=== PATIENT | male | born 1980 | race Caucasian/White ===

== ENCOUNTER 2017-06-30 22:25 | Emergency (ER) | payer BC ==
[2017-06-30 22:25] VITALS: BMI 32.5
[2017-06-30 22:44] VITALS: TEMP 97.9
[2017-06-30] MEDS ORDERED: Sodium Chloride 0.9% 1,000 ML IV ONE (23:03)
--- NOTE | 2017-06-30 23:03 | C.PDOC ---
History Of Present Illness <Nate Jenkins - Last Filed: 07/01/17 00:58> <Liliana Mcbride - Last Filed: 07/01/17 05:33> 37 yo male, presnets with abd pain. as per pt started today. pain worse lower abd, llq. pt reports fever to 101. no urinary changes diarrhea or other complaints (Gregory,Nate) <Nate Jenkins - Last Filed: 07/01/17 00:58> <Liliana Mcbride - Last Filed: 07/01/17 05:33> Time Seen by Provider: 06/30/17 22:59 Chief Complaint (Nursing): Abdominal Pain Past Medical History Reviewed: Historical Data, Nursing Documentation, Vital Signs - Medical History PMH: Asthma Family History: States: Unknown Family Hx - Social History Hx Alcohol Use: Yes Hx Substance Use: No - Immunization History Hx Tetanus Toxoid Vaccination: No Hx Influenza Vaccination: No Hx Pneumococcal Vaccination: No <Nate Jenkins - Last Filed: 07/01/17 00:58> Vital Signs: Last Vital Signs Temp 97.9 F 07/01/17 01:41 Pulse 64 07/01/17 01:41 Resp 20 07/01/17 01:41 BP 127/84 07/01/17 01:41 Pulse Ox 97 07/01/17 01:41 Review Of Systems Constitutional: Positive for: Fever Gastrointestinal: Positive for: Abdominal Pain <Nate Jenkins - Last Filed: 07/01/17 00:58> Physical Exam - Physical Exam Appears: Well, No Acute Distress Skin: Normal Color, Warm, Dry Eye(s): bilateral: Normal Inspection, PERRL, EOMI Nose: Normal Throat: Normal Neck: Normal Cardiovascular: Rhythm Regular Respiratory: Normal Breath Sounds Gastrointestinal/Abdominal: Normal Exam, Soft, Tenderness (mild llq), No Guarding, No Rebound Back: Normal Inspection Extremity: Normal ROM <Nate Jenkins - Last Filed: 07/01/17 00:58> ED Course And Treatment - Laboratory Results Result Diagrams: 06/30/17 23:20 06/30/17 23:20 O2 Sat by Pulse Oximetry: 96 <Nate Jenkins - Last Filed: 07/01/17 00:58> - Laboratory Results Result Diagrams: 06/30/17 23:20 06/30/17 23:20 <Liliana Mcbride - Last Filed: 07/01/17 05:33> Medical Decision Making <Nate Jenkins - Last Filed: 07/01/17 00:58> <Liliana Mcbride - Last Filed: 07/01/17 05:33> Medical Decision Making: ro colitis uti diverticulitis- labs imaging pending pt reassesed pain improve.d ct pending 100case endorsed to third shift lieutenant pending ct, reassess, final dispo (Nate Jenkins ) Disposition - Disposition Disposition Time: 00:59 <Nate Jenkins - Last Filed: 07/01/17 00:58> <Liliana Mcbride - Last Filed: 07/01/17 05:33> - Disposition Referrals: Non [facility] Provider, [Non-Staff] - Disposition: HOME/ ROUTINE Condition: STABLE Instructions: Viral Gastroenteritis Forms: [facility] (Serbian) - Clinical Impression Clinical Impression: Abdominal pain
[2017-06-30 23:29] LABS: SQUAMOUS EPITHIAL < 1 /hpf (0-5); URINE BILIRUBIN NEGATIVE (NEGATIVE); URINE BLOOD NEGATIVE (NEGATIVE); URINE CLARITY Clear (Clear); URINE COLOR Yellow (YELLOW); URINE GLUCOSE (UA) NORMAL (Normal); URINE LEUKOCYTE ESTERASE NEG Leu/uL (Negative); URINE PROTEIN 1+ mg/dL (NEGATIVE)
[2017-06-30 23:31] LABS: INR 1.1; PROTHROMBIN TIME 12.2 SECONDS (9.7-12.2)
[2017-06-30 23:35] LABS: ALB/GLOB RATIO 1.1 (1.0-2.1); ALBUMIN 4.2 g/dL (3.5-5.0); ALT/SGPT 68 U/L (21-72); AST/SGOT 36 U/L (17-59); BLOOD UREA NITROGEN 17 mg/dL (9-20); CALCIUM 8.3 mg/dl (8.6-10.4); GFR AFRICAN-AMERICAN > 60; GFR NON-AFRICAN AMERICAN > 60; LIPASE 46 U/L (23-300)
[2017-06-30] MEDS ORDERED: Sodium Chloride 0.9% 1,000 ML ONE (23:35)
[2017-06-30] MEDS ORDERED: Iohexol 350mg/ml 100 ML ONE (23:47)
[2017-06-30 23:58] LABS: BASO # 0.1 K/uL (0.0-0.2); BASO % 0.7 % (0.0-2.0); EOS # 0.9 K/uL (0.0-0.7); EOS % 11.3 % (0.0-4.0); HEMOGLOBIN 15.7 g/dL (12.0-18.0); LYMPH # 1.9 K/uL (1.0-4.3); LYMPH % 23.4 % (20.0-40.0); MEAN CORPUSCULAR HEMOGLOBIN 32.6 pg (27.0-31.0); MEAN CORPUSCULAR HGB CONC 35.4 g/dL (33.0-37.0); MONO # 0.8 K/uL (0.0-0.8); MONO % 10.6 % (0.0-10.0); NEUT # 4.3 K/uL (1.8-7.0); NRBC % 0.1 % (0.0-2.0); RBC 4.82 Mil/uL (4.40-5.90); WHITE BLOOD COUNT 7.9 K/uL (4.8-10.8)
--- NOTE | 2017-07-01 01:11 | CT ---
EXAM: CT Abdomen and Pelvis With Intravenous Contrast CLINICAL HISTORY: 37 years old, male; Pain; Abdominal pain; Patient HX: 02-06-17 images sent; Additional info: Lower abd pain TECHNIQUE: Axial computed tomography images of the abdomen and pelvis with intravenous contrast. All CT scans at this facility use one or more dose reduction techniques, viz.: automated exposure control; ma/kV adjustment per patient size (including targeted exams where dose is matched to indication; i.e. head); or iterative reconstruction technique. Coronal and sagittal reformatted images were created and reviewed. CONTRAST: 100 mL of [id number] administered intravenously. COMPARISON: CT - ABD PELVIS W/O PO OR IV CONT 2017-02-06 20:01 FINDINGS: Lower thorax: No acute findings. ABDOMEN: Liver: Fatty infiltration. Gallbladder and bile ducts: No calcified stones. No ductal dilation. Pancreas: No ductal dilation. No mass. Spleen: No splenomegaly. Adrenals: No mass. Kidneys and ureters: Few punctate renal calculi. No hydronephrosis. Stomach and bowel: No definite mural thickening. No obstruction. Appendix: No definite findings to suggest acute appendicitis. PELVIS: Bladder: Unremarkable. Reproductive: Unremarkable as visualized. ABDOMEN and PELVIS: Intraperitoneal space: No significant fluid collection. No free air. Bones/joints: Chronic left L5 pars defect. No acute fracture. Probable bone islands. Soft tissues: Unremarkable. Vasculature: Retroaortic LEFT renal vein. No aneurysm. Lymph nodes: No pathologically enlarged lymph nodes. IMPRESSION: 1. Nonobstructing renal calculi. 2. Incidental/non-acute findings are described above.
[2017-07-01 01:42] VITALS: BP 127/84; PULSE 64; RESP 20; O2SAT 97
== END 2017-07-01 01:42 | disposition home or self-care (01) ==
LOC: C.ER 22:25 → SUPCPDRO 22:25 → C.ER 07-01 01:42
DX: R10.32 Left lower quadrant pain (principal)
CPT/HCPCS: 74177; 80053; 81001; 83690; 85025; 85610; 85730; 96360; 99284; J7040; Q9967

== ENCOUNTER 2018-06-28 17:00 | Emergency (ER) | payer BC ==
[2018-06-28 17:06] VITALS: BMI 35.2
[2018-06-28 17:08] VITALS: BP 129/90; PULSE 65; RESP 18; TEMP 97.9; O2SAT 98
[2018-06-28] MEDS ORDERED: Tdap Vaccine 0.5 ml Vial (10-64 yrs) IM ONE ×2 (17:26→17:39)
[2018-06-28] MEDS ORDERED: Lidocaine 2% Inj (20ml) INFIL STA (18:29)
[2018-06-28] MEDS ORDERED: Lidocaine 2% MPF (5 ml) Inj ONE ×2 (18:35→19:00)
--- NOTE | 2018-06-28 20:56 | C.PDOC ---
History Of Present Illness 38 year old male presents to ED with complaint of left foot pain. Patient states that 2 weeks ago he was walking around his house barefoot when he stepped on a sewing needle and states that he thought he pulled the entire needle out. He states that he thought that it got better, but then a couple of days ago it became swollen and painful. He states that he is not UTD with his tetanus vaccine. Patient denies bleeding, weakness, and numbness. Time Seen by Provider: 06/28/18 17:22 Chief Complaint (Nursing): Lower Extremity Problem/Injury History Per: Patient History/Exam Limitations: no limitations Onset/Duration Of Symptoms: Other (2 weeks ) Current Symptoms Are (Timing): Still Present - Ankle/Foot Description Of Injury: Struck Against Object Past Medical History Reviewed: Historical Data, Nursing Documentation, Vital Signs Vital Signs: Last Vital Signs Temp 97.9 F 06/28/18 17:07 Pulse 65 06/28/18 17:07 Resp 18 06/28/18 17:07 BP 129/90 06/28/18 17:07 Pulse Ox 98 06/28/18 17:07 - Medical History PMH: Asthma Surgical History: No Surg Hx Family History: States: Unknown Family Hx - Social History Hx Alcohol Use: Yes Hx Substance Use: No - Immunization History Hx Tetanus Toxoid Vaccination: No Hx Influenza Vaccination: No Hx Pneumococcal Vaccination: No Review Of Systems Constitutional: Negative for: Fever, Chills, Weakness Musculoskeletal: Positive for: Foot Pain (left). Negative for: Other (bleeding from the left foot) Neurological: Negative for: Weakness, Numbness, Dizziness Physical Exam - Physical Exam Appears: Well, Non-toxic, No Acute Distress Skin: Normal Color, Warm, Dry Head: Atraumatic, Normacephalic Neck: Normal ROM, Supple Chest: Symmetrical, No Deformity Respiratory: No Accessory Muscle Use Extremity: Swelling (left foot, puncture wound visible, no discharge) Pulses: Left Dorsalis Pedis: Normal, Right Dorsalis Pedis: Normal Neurological/Psych: Oriented x3, Normal Speech, Normal Cognition ED Course And Treatment O2 Sat by Pulse Oximetry: 98 (in RA) - Other Rad Left foot xray: X-Ray: Interpreted by Me Interpretation: FB (Needle) seen in ele foot Progress Note: Left foot X-ray ordered for patient. Patient given Adacel IM and Keflex PO. Podiatry resident called. Podiatry resident successfully removed needle from the left foot. Re-evaluation. Patient feels better. Xray confirmed complete FB removal. Discussed results and plan with patient who expresses understanding. All questions answered and there is agreement with the plan to discharge home with instructions. Patient stable for discharge. Return if symptoms persist or worsen. Disposition - Disposition Disposition: HOME/ ROUTINE Disposition Time: 20:54 Condition: STABLE Additional Instructions: Follow up in podiatry clinic next 07/05/2018 as instructed. Return to ED immediately if feel worse. Prescriptions: Bacitracin OINT 1 applic TP TID #45 g Cephalexin [Keflex] 500 mg PO Q6 #28 cap Instructions: Removal of Foreign Body in Skin Forms: [facility] (Arabic), Work Excuse - Clinical Impression Clinical Impression: Foreign body in soft tissue - PA / TENNIS PROFESSIONAL / Resident Statement MD/DO has reviewed & agrees with the documentation as recorded. (Savana stone) - Scribe Statement The provider has reviewed the documentation as recorded by the Scribe (Savana Hanks) All medical record entries made by the Scribe were at my direction and personally dictated by me. I have reviewed the chart and agree that the record accurately reflects my personal performance of the history, physical exam, medical decision making, and the department course for this patient. I have also personally directed, reviewed, and agree with the discharge instructions and disposition.
--- NOTE | 2018-06-29 06:23 | CP.PCM.CON ---
History of Present Illness - History of Present Illness History of Present Illness: Podiatry consult note for Dr. Koch, 38 y/o male patient with no significant PMHx was seen and evaluated at bedside for possible foreign body left foot. Patient states 2 weeks ago he was walking in his home barefoot when he stepped on a sewing needle. Patient states he thought he pulled out the needle. Patient states the pain subsided, and only worsened again today along with swelling. Patient denies fever, nausea, vomiting, shortness of breath, drainage from foot, or chest pain PMHx: Asthma PSHx: R knee surgery Allergies: NKFDA Review of Systems - Review of Systems All systems: reviewed and no additional remarkable complaints except Review of Systems: As per HPI Past Patient History - Infectious Disease Hx of Infectious Diseases: None - Past Social History Smoking Status: Never Smoked - PULMONARY Hx Asthma: Yes - GENITOURINARY/GYNECOLOGICAL Hx Bladder Stone: Yes (ABLE TO PASS) - PSYCHIATRIC Hx Substance Use: No - SURGICAL HISTORY Hx Surgeries: No - ANESTHESIA Hx Anesthesia: No Meds Home Medications: Home Medication List Medication Instructions Recorded Confirmed Type Bacitracin OINT 1 applic TP TID #45 g 06/28/18 Rx Cephalexin [Keflex] 500 mg PO Q6 #28 cap 06/28/18 Rx Allergies/Adverse Reactions: Allergies Allergy/AdvReac Type Severity Reaction Status Date / Time No Known Allergies Allergy Verified 06/28/18 17:09 Physical Exam - Constitutional Appears: Well, Non-toxic, No Acute Distress - Head Exam Head Exam: ATRAUMATIC, NORMOCEPHALIC - Eye Exam Eye Exam: Normal appearance - ENT Exam ENT Exam: Mucous Membranes Moist - Extremities Exam Extremities exam: Positive for: normal capillary refill, tenderness, pedal pulses present Additional comments: Left Lower Extremity Exam VASC: DP and PT 2/4, CFT less than 3 seconds X 5, TG within normal limits, minimal edema noted plantarly DERM: small 1 cm incision noted plantarly submetatarsal 1 due to attempted foreign body removal by ED staff, minimal active bleeding noted, no purulent drainage, no probe to bone, no signs of infection NEURO: intact ORTHO: pain on palpation to the 1st interspace at the area of swelling - Neurological Exam Neurological exam: Alert, Oriented x3 - Psychiatric Exam Psychiatric exam: Normal Affect, Normal Mood Results - Vital Signs Recent Vital Signs: Last Vital Signs Temp 97.9 F 06/28/18 17:07 Pulse 65 06/28/18 17:07 Resp 18 06/28/18 17:07 BP 129/90 06/28/18 17:07 Pulse Ox 98 06/28/18 21:53 Assessment & Plan - Assessment and Plan (Free Text) Assessment: 38 y/o male patient seen and evaluated in the ED for foreign body to left foot Plan: Patient seen and evaluated in the ED Plan discussed with Dr. koch Ordered Left Foot X-rays: foreign body noted in the 1st interspace Patient explained that possible removal of foreign body can be attempted in the ED, patient and spouse agreeable to procedure All risk and benefits were thoroughly explained to patient ED staff attempted foreign body removal- Patient had received 7 cc of 2% Lidocaine with epinephrine prior to arrival Podiatry then saw patient and injected patient with another 3 cc of 2% Lidocaine with epinephrine in a local V-block type fashion Plantar Incision was extended laterally, with total 1.5 cm in length Foreign body, needle, was removed with a hemostat Incision was copiously flushed with betadine and saline Incision was primarily closed with 3-0 Nylon in simple sutures Site was dressed with betadine, DSD and patient provided with surgical shoe Patient to remain weight-bearing to heel or non-weight bearing until follow up visit to Podiatry clinic patient to f/u on Thursday in Podiatry clinic 07/05/18 Patient explained all signs and symptoms of infection and to return to ED if possible Patient demonstrated verbal understanding and tolerated procedure well thank you for the Podiatry consult - Date & Time Date: 06/29/18 Time: 08:59
--- NOTE | 2018-06-29 10:08 | RAD ---
Date of service: 06/28/2018 PROCEDURE: Left Foot Radiographs. HISTORY: STEPPED ON NEEDLE COMPARISON: None. TECHNIQUE: 3 views obtained. FINDINGS: BONES: No evidence of displaced fracture nor dislocation. There are no cortical destructive changes. JOINTS: Normal. SOFT TISSUES: There is an approximately 2.05 mm partially intact threading needle seen within the plantar soft tissues at the level of the bases of the proximal phalanges 1st and 2nd digits. OTHER FINDINGS: None. IMPRESSION: In situ radiopaque partially threaded threading needle within the plantar soft tissues at the level of bases of the proximal phalanges 1st and 2nd digits.
--- NOTE | 2018-06-29 10:09 | RAD ---
Date of service: 06/28/2018 2036 hr PROCEDURE: Left Foot Radiographs. HISTORY: post FB removal COMPARISON: Comparison made with prior radiographs left foot 06/28/2018 at 1743 hr TECHNIQUE: 3 views obtained. FINDINGS: BONES: Normal. No fracture. JOINTS: Normal. SOFT TISSUES: Interval removal previously noted threading needle which was seen plantar soft tissues at the level of proximal phalanges 1st and 2nd digits. OTHER FINDINGS: None. IMPRESSION: Interval removal previously noted threading needle which was seen plantar soft tissues at the level of proximal phalanges 1st and 2nd digits.
== END 2018-06-28 21:03 | disposition home or self-care (01) ==
LOC: C.ER 17:00
DX: S90.852A Superficial foreign body, left foot, initial encounter (principal); W27.3XXA Contact with needle (sewing), initial encounter